=== PATIENT | female | born 1945 | race Caucasian/White ===

== ENCOUNTER 2017-01-27 21:15 | Emergency (ER) | payer OTHER ==
[~2017-01-27] VITALS: Ht 152.4 cm; Wt 72.7 kg
[2017-01-27 21:28] VITALS: TEMP 36.8; Ht 152.4 cm; Wt 72.7 kg
[2017-01-27] MEDS ORDERED: IBUPROFEN 600 MG TAB PO STA (22:03)
[2017-01-27] MEDS ORDERED: GLC/500 PO (22:21)
[2017-01-27] MEDS ORDERED: ATOR10TA88 PO (22:21)
--- NOTE | 2017-01-27 22:55 | DIAGNOSTIC IMAGING REPORT ---
RIGHT KNEE 3 VIEWS CLINICAL HISTORY: Right knee pain following twisting injury. COMPARISON: None FINDINGS: Alignment of the right knee is anatomic. There is no acute fracture. A moderate right knee joint effusion is present. Joint spaces are preserved. There is mild osteophytosis within the medial and patellofemoral compartments of the right knee. Minimal spurring of the superior patella at the insertion of the quadriceps is noted. IMPRESSION: 1. No acute fracture. 2. Moderate right knee joint effusion. Electronically signed by: Joel Silva M.D. 01/27/2017 10:54 PM Dictated Date/Time: 01/27/2017 10:51 PM
--- NOTE | 2017-01-27 23:05 | EMERGENCY ROOM VISIT NOTE ---
ED Visit Note First contact with patient: 23:04 I have seen and examined this patient with Rachele Finch and generally agree with the treatment plan as discussed. Current/Historical Medications Scheduled Atorvastatin (Lipitor), 10 MG PO DAILY Metformin Hcl (Glucophage), 250 MG PO BID Allergies Coded Allergies: No Known Allergies (Unverified , 01/27/17) Vital Signs Date Time Temp Pulse Resp B/P (MAP) Pulse Ox O2 Delivery O2 Flow Rate FiO2 01/27/17 21:28 36.8 72 18 135/83 97 Room Air Medications Administered Medications (Trade) Dose Ordered Sig/Seferino Route Start Time Stop Time Status Last Admin Dose Admin Ibuprofen (Motrin Tab) 600 mg NOW STAT PO 01/27/17 22:03 01/27/17 22:06 DC 01/27/17 22:32 600 MG Departure Information Impression Primary Impression: Right knee injury Dispostion Home / Self-Care Condition GOOD Forms HOME CARE DOCUMENTATION FORM, IMPORTANT VISIT INFORMATION Patient Instructions My [facility], ED Meniscal Injury Knee Poss Additional Instructions Ibuprofen(Motrin, Advil) may be used for fever or pain. Use 600mg every six hours as needed. Take with food. Avoid using more than 2400mg in a 24 hour period. Do not use 2400mg per day for more than three consecutive days without physician direction. Prolonged inappropriate use can lead to stomach upset or ulcers. This medication can be taken if you need to drive, work, or perform activities which may be dangerous when taking narcotic pain medication. (AND/OR) Acetaminophen(Tylenol) may be used for fever or pain. Use 1000mg every six hours as needed. Avoid using more than 3000mg in a 24 hour period. This medication can be taken if you need to drive, work, or perform activities which may be dangerous when taking narcotic pain medication. Ice compresses for 20 minutes at a time four times daily for 2-3 days. Use the walker as instructed. Rest and elevate your injury. Wear knee immobilizer when up and about. Do not have it so tight that you cannot feel your foot. Continue current medications. Return to the ER immediately for any numbness, tingling, severe pain, extreme swelling in the extremity or as needed. Call your orthopedics on Monday when you return home to arrange follow up for your injury.
--- NOTE | 2017-01-27 23:08 | EMERGENCY ROOM VISIT NOTE ---
ED Visit Note First contact with patient: 21:52 CHIEF COMPLAINT: knee pain HISTORY OF PRESENT ILLNESS: This 72-year-old patient presents to the emergency department with family after sustaining an injury to the right knee after twisting this morning and felt a pop and had instant pain. Patient did not fall to the ground. The knee did swell immediately. The patient denies any other injuries besides their knee. The patient c/o swelling without bruising. There is pain diffusely in the knee. They rate the pain as throbbing and 5/10. The patient states they are barely able to walk on it. No numbness or tingling. No previous injuries to this knee. No ankle, foot or hip pain. Patient is here visiting for her granddaughter's graduation. She does have an orthopedic doctor back home. Patient tried naproxen earlier today. REVIEW OF SYSTEMS: A 6 system review of systems was completed with positives and pertinent negatives listed in the HPI. ALLERGIES: None MEDICATIONS: Metformin, reviewed PMH: Diabetes, hyperlipidemia, , orthopedic injuries SOCIAL HISTORY: No Drug use PHYSICAL EXAM: Vital Signs: Reviewed Nurse's notes, vital signs stable. GENERAL : Pleasant female, no acute distress, but appears in pain, well-developed, well- nourished. MENTAL STATUS: Alert, oriented to person place and time, and cooperative. MUSCULOSKELETAL: The right knee is swollen. There is no ecchymosis. There is joint effusion present. The patient is tender diffusely. There is joint line tenderness. The patella not subluxate. Range of motion is limited secondary to pain. Strength of the quads and hamstrings is 5/5. Kaylin 's and Anterior Drawer tests are negative. There is pain with varus and valgus stressing. The foot and toes are warm and well-perfused. Dorsalis pedis pulse 2+. Sensation to pain and light touch is intact. Capillary refill less than 2 seconds. EMERGENCY DEPARTMENT COURSE: I examined the patient. X-rays of the right knee were reviewed by myself and read by radiology and reveal no fracture. The patient was placed in a knee immobilizer under my direction and the position was satisfactory. The patient was instructed on the use of walker. Patient was advised follow-up with her orthopedic doctor when she returns home next week or here in the ER sooner for severe pain, numbness, tingling, worsening signs or symptoms or as needed. The patient was discharged home in good condition. DIAGNOSIS: #1 right knee injury #2 possible meniscal injury DISCHARGE INSTRUCTIONS: Ibuprofen(Motrin, Advil) may be used for fever or pain. Use 600mg every six hours as needed. Take with food. Avoid using more than 2400mg in a 24 hour period. Do not use 2400mg per day for more than three consecutive days without physician direction. Prolonged inappropriate use can lead to stomach upset or ulcers. This medication can be taken if you need to drive, work, or perform activities which may be dangerous when taking narcotic pain medication. (AND/OR) Acetaminophen(Tylenol) may be used for fever or pain. Use 1000mg every six hours as needed. Avoid using more than 3000mg in a 24 hour period. This medication can be taken if you need to drive, work, or perform activities which may be dangerous when taking narcotic pain medication. Ice compresses for 20 minutes at a time four times daily for 2-3 days. Use the walker as instructed. Rest and elevate your injury. Wear knee immobilizer when up and about. Do not have it so tight that you cannot feel your foot. Continue current medications. Return to the ER immediately for any numbness, tingling, severe pain, extreme swelling in the extremity or as needed. Call your orthopedics on Monday when you return home to arrange follow up for your injury. Current/Historical Medications Scheduled Atorvastatin (Lipitor), 10 MG PO DAILY Metformin Hcl (Glucophage), 250 MG PO BID Allergies Coded Allergies: No Known Allergies (Unverified , 01/27/17) Vital Signs Date Time Temp Pulse Resp B/P (MAP) Pulse Ox O2 Delivery O2 Flow Rate FiO2 01/27/17 21:28 36.8 72 18 135/83 97 Room Air Medications Administered Medications (Trade) Dose Ordered Sig/Seferino Route Start Time Stop Time Status Last Admin Dose Admin Ibuprofen (Motrin Tab) 600 mg NOW STAT PO 01/27/17 22:03 01/27/17 22:06 DC 01/27/17 22:32 600 MG Departure Information Referrals No Doctor, Assigned (PCP) Patient Instructions My [facility]
[2017-01-27 23:13] VITALS: BP 129/74; PULSE 70; O2SAT 98
== END 2017-01-27 23:14 | disposition home or self-care (01) ==
LOC: C.EDB 21:19 → C.EDD 23:14
DX: S89.91XA Unspecified injury of right lower leg, initial encounter (principal); X50.0XXA Overexertion from strenuous movement or load, initial encounter; Z79.899 Other long term (current) drug therapy; E11.9 Type 2 diabetes mellitus without complications; E78.5 Hyperlipidemia, unspecified